=== PATIENT | female | born 1945 | race Caucasian/White ===

== ENCOUNTER 2017-05-04 09:47 | Emergency (ER) | payer MEDICARE ==
--- NOTE | 2017-05-04 11:21 | EDM.PDOC ---
[id number] [id number] FLU??? Time Seen by Provider: 05/04/17 10:45 Source of Information: Reports: Patient History Limitations: Reports: No Limitations - History of Present Illness INITIAL COMMENTS - FREE TEXT/NARRATIVE: 71-year-old female concerned she might have the "flu". Last night she just felt a little off, but slept well. This morning she woke up and had emesis 2 and a small amount of diarrhea. She feels weak this morning so that should be checked. However now she feels fairly normal. She has no pain, no fever, no shortness of breath or chest pain. No rashes or joint pain. Onset: Unknown/Unsure (Symptoms started sometime overnight) Severity: Mild Improves with: Reports: None Worsens with: Reports: None Associated Symptoms: Reports: No Other Symptoms - Related Data Allergies Allergy/AdvReac Type Severity Reaction Status Date / Time cefprozil Allergy Cannot Verified 10/02/15 08:24 Remember Penicillins AdvReac Stomach Verified 10/02/15 14:04 Upset pravastatin AdvReac Headache Verified 10/02/15 14:04 simvastatin AdvReac Headache Verified 10/02/15 14:04 [id number] Reductase AdvReac Diarrhea Verified 10/02/15 14:04 Inhibitor Home Meds: Home Meds Aspirin [Chavez Chewable Aspirin] 81 mg PO DAILY 09/01/15 [History] Calcium Carbonate/Vitamin D3 [Calcium 600 + Vit D 400] 1 tab PO BID 09/01/15 [ History] Insulin Aspart [Novolog] 2 - 3 units SQ TID 09/01/15 [History] Insulin Glarg,Human.Rec.Analog [Lantus Solostar] 16 units SQ BEDTIME 09/01/15 [ History] Magnesium Chloride [Mag-64] 64 mg PO DAILY 09/01/15 [History] Metoprolol Tartrate [Lopressor] 50 mg PO BID 09/01/15 [History] metFORMIN [Glucophage] 850 mg PO TID 09/01/15 [History] Loratadine [Claritin] 10 mg PO DAILY 09/27/15 [History] Acetaminophen [Tylenol] 650 mg PO Q6H PRN #100 tablet 10/03/15 [Rx] Past Medical History HEENT History: Reports: Allergic Rhinitis, Cataract, Impaired Vision, Sinusitis Cardiovascular History: Reports: Arrhythmia, High Cholesterol, Hypertension Gastrointestinal History: Reports: Colon Polyp PIE CHEF History: Reports: , Spontaneous Endocrine/Metabolic History: Reports: Diabetes, Type II, IDDM Oncologic (Cancer) History: Reports: Breast - Infectious Disease History Infectious Disease History: Reports: Chicken Pox, Measles, Mumps - Past Surgical History Head Surgeries/Procedures: Reports: None Female Surgical History: Reports: Breast Biopsy Oncologic Surgical History: Reports: Biopsy of Breast Dermatological Surgical History: Reports: None Social & Family History - Family History Family Medical History: Noncontributory - Tobacco Use Smoking Status *Q: Never Smoker Second Hand Smoke Exposure: No - Caffeine Use Caffeine Use: Reports: Coffee, Soda - Alcohol Use Days Per Week of Alcohol Use: 7 Number of Drinks Per Day: 1 Total Drinks Per Week: 7 Date of Last Drink: 05/03/17 - Recreational Drug Use Recreational Drug Use: No ED ROS GENERAL - Review of Systems Review Of Systems: See Below Constitutional: Reports: Malaise. Denies: Fever, Chills HEENT: Reports: No Symptoms Respiratory: Denies: Shortness of Breath, Cough Cardiovascular: Denies: Chest Pain GI/Abdominal: Reports: Diarrhea, Nausea, Vomiting. Denies: Abdominal Pain : Reports: No Symptoms Skin: Reports: No Symptoms Neurological: Reports: Weakness (Generalized). Denies: Headache Psychiatric: Reports: No Symptoms ED EXAM, GENERAL - Physical Exam Exam: See Below Exam Limited By: No Limitations General Appearance: Alert, No Apparent Distress Eye Exam: Bilateral Eye: Normal Inspection Respiratory/Chest: No Respiratory Distress, Lungs Clear Cardiovascular: Regular Rate, Rhythm GI/Abdominal: Normal Bowel Sounds, Soft, Non-Tender Neurological: Alert, Oriented Psychiatric: Normal Affect, Normal Mood Skin Exam: Warm, Dry Course - Vital Signs Last Recorded V/S: Last Vital Signs Temp 96.0 F 05/04/17 10:56 Pulse 77 05/04/17 11:51 Resp 20 05/04/17 10:56 BP 193/117 H 05/04/17 11:51 Pulse Ox 98 05/04/17 10:56 Orthostatic Blood Pressure [ 191/127 Standing] Orthostatic Blood Pressure [ 185/113 Sitting] Orthostatic Blood Pressure [ 186/102 Supine] - Orders/Labs/Meds Orders: Active Orders 24 hr Category Date Time Status Orthostatic Vital Signs [RC] ASDIRECTED Care 05/04/17 12:29 Active - Re-Assessments/Exams Free Text/Narrative Re-Assessment/Exam: 05/04/17 11:42 Orthostatic blood pressures were stable however she was consistently hypertensive. She does admit that whenever she goes into the hospital her blood pressure goes "way up". She did get her blood pressure medications this morning. She did not redevelop any symptoms while she was here, I encouraged her to check her blood pressure at least several times weekly and recheck with her primary provider in 2-3 days to discuss whether more treatment is needed for blood pressure control. She will return sooner if her gastroenteritis symptoms return or she feels worse. Departure - Departure Time of Disposition: 11:52 Disposition: Home, Self-Care 01 Condition: Good Clinical Impression: Gastroenteritis Hypertension Qualifiers: Hypertension type: essential hypertension Qualified Code(s): I10 - Essential ( primary) hypertension - Discharge Information Instructions: Viral Gastroenteritis, Adult, [id number], Hypertension Referrals: Vikki Tse PA [Primary Care Provider] - Forms: ED Department Discharge Care Plan Goals: Advance diet as tolerated, continue your regular medications and consistent blood pressure checks for the next several days with a recheck in 48-72 hours would be advised. Return to ER if you feel you are worsening or have other concerns. - My Orders Last 24 Hours: My Active Orders 05/04/17 12:29 Orthostatic Vital Signs [RC] ASDIRECTED - Assessment/Plan Last 24 Hours: My Active Orders 05/04/17 12:29 Orthostatic Vital Signs [RC] ASDIRECTED
[2017-05-04 11:51] VITALS: BP 193/117
== END 2017-05-04 11:52 | disposition home or self-care (01) ==
LOC: JP.ED 09:47
DX: K52.9 Noninfective gastroenteritis and colitis, unspecified (principal); I10 Essential (primary) hypertension; E78.00 Pure hypercholesterolemia, unspecified; E11.9 Type 2 diabetes mellitus without complications; Z85.3 Personal history of malignant neoplasm of breast; Z79.4 Long term (current) use of insulin; Z79.82 Long term (current) use of aspirin; Z79.899 Other long term (current) drug therapy; Z88.0 Allergy status to penicillin; Z88.8 Allergy status to other drugs, medicaments and biological substances; Z98.890 Other specified postprocedural states
CPT/HCPCS: 99283

== ENCOUNTER 2018-03-08 19:42 | Emergency (ER) | payer MEDICARE ==
--- NOTE | 2018-03-08 20:03 | EDM.PDOC ---
ED HPI GENERAL MEDICAL PROBLEM - General Chief Complaint: Lower Extremity Injury/Pain Stated Complaint: FELL AND HURT HIP Time Seen by Provider: 03/08/18 19:45 Source of Information: Reports: Patient, EMS History Limitations: Reports: No Limitations - History of Present Illness INITIAL COMMENTS - FREE TEXT/NARRATIVE: 72-year-old female brought in by ambulance with a right hip injury, and left wrist injury after falling in her yard. She tripped over a tomato cage. This happened about 2 hours ago, she managed to crawl into the house and call for help. She has no abdominal pain, shortness of breath, she did not sustain a head injury or have any spine complaints. There is some external rotation of the right leg and slight shortening, and she arrives with her left wrist in a splint per EMS. Vitals are stable. 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(s) Right Hip Pain Score (Numeric/FACES): 5 - Related Data Allergies Allergy/AdvReac Type Severity Reaction Status Date / Time cefprozil Allergy Cannot Verified 03/08/18 19:58 Remember Penicillins AdvReac Stomach Verified 03/08/18 19:58 Upset pravastatin AdvReac Headache Verified 03/08/18 19:58 simvastatin AdvReac Headache Verified 03/08/18 19:58 [id number]-[id number] Reductase AdvReac Diarrhea Verified 03/08/18 19:58 Inhibitor Home Meds: Home Meds Aspirin [Chavez Chewable Aspirin] 81 mg PO DAILY 09/01/15 [History] Calcium Carbonate/Vitamin D3 [Calcium 600 + Vit D 400] 1 tab PO BID 09/01/15 [ History] Insulin Aspart [Novolog] 2 - 3 units SQ TID 09/01/15 [History] Magnesium Chloride [Mag-64] 64 mg PO DAILY 09/01/15 [History] Metoprolol Tartrate [Lopressor] 50 mg PO BID 09/01/15 [History] metFORMIN [Glucophage] 850 mg PO TID 09/01/15 [History] Loratadine [Claritin] 10 mg PO DAILY 09/27/15 [History] Acetaminophen [Tylenol] 650 mg PO Q6H PRN #100 tablet 10/03/15 [Rx] Insulin Degludec [Tresiba Flextouch U-100] 12 units SQ DAILY 03/08/18 [History] Past Medical History HEENT History: Reports: Allergic Rhinitis, Cataract, Impaired Vision, Sinusitis Cardiovascular History: Reports: Arrhythmia, High Cholesterol, Hypertension Gastrointestinal History: Reports: Colon Polyp 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: , 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 Endocrine/Metabolic History: Reports: Diabetes, Type II, IDDM Oncologic (Cancer) History: Reports: Breast - Infectious Disease History Infectious Disease History: Reports: Chicken Pox, Measles, Mumps - Past Surgical History Head Surgeries/Procedures: Reports: None Female Surgical History: Reports: Breast Biopsy Oncologic Surgical History: Reports: Biopsy of Breast Dermatological Surgical History: Reports: None Social & Family History - Family History Family Medical History: Noncontributory - Caffeine Use Caffeine Use: Reports: Coffee, Soda Review of Systems - Review of Systems Review Of Systems: See Below Constitutional: Denies: Fever Respiratory: Reports: No Symptoms Cardiovascular: Reports: No Symptoms GI/Abdominal: Reports: No Symptoms Genitourinary: Reports: No Symptoms Skin: Reports: No Symptoms Neurological: Denies: Headache Psychiatric: Reports: No Symptoms ED EXAM, GENERAL - Physical Exam Exam: See Below Exam Limited By: No Limitations General Appearance: Alert, Mild Distress (Patient is uncomfortable, received some pain control in route) Head: Atraumatic Neck: Supple Respiratory/Chest: No Respiratory Distress, Lungs Clear Cardiovascular: Regular Rate, Rhythm. No: Extra Beats GI/Abdominal: Soft, Non-Tender Extremities: Other (Tito palpation tenderness around the right hip with increased pain with any passive range of motion. Distal CS is intact. She has a splint on the left wrist, she has normal sensation to the fingers and movement but tenderness around the the wrist especially radial side) Neurological: Alert, Oriented Course - Vital Signs Last Recorded V/S: Last Vital Signs Temp 97.3 F 03/08/18 21:12 Pulse 91 03/08/18 21:12 Resp 18 03/08/18 21:12 BP 166/90 H 03/08/18 21:12 Pulse Ox 98 03/08/18 21:12 - Orders/Labs/Meds Orders: Active Orders 24 hr Category Date Time Status Insert Qiu Catheter [Insert Urinary Catheter] [OM.PC] Care 03/08/18 20:45 Ordered Q24H Urinary Catheter Assessment [RC] ASDIRECTED Care 03/08/18 20:39 Active Hip Min 2V or 3V w Pelvis Rt [CR] Stat Exams 03/08/18 19:50 Taken Wrist Comp Min 3V Lt [CR] Stat Exams 03/08/18 19:50 Taken Meds: Medications Discontinued Medications Generic Name Dose Route Start Last Admin Trade Name Prosperq PRN Reason Stop Dose Admin Fentanyl 50 mcg 03/08/18 20:38 03/08/18 20:44 Sublimaze IVPUSH 03/08/18 20:39 50 mcg ONETIME ONE Administration - Re-Assessments/Exams Free Text/Narrative Re-Assessment/Exam: 03/08/18 20:35 An x-ray of the right hip and pelvis was obtained and revealed a comminuted subcapsular femoral neck fracture. She also has an impacted distal radius fracture of the left wrist. Orthopedics is not available in [place] at this time, [place] was consulted. 03/08/18 20:39 Patient was given 50 g of additional fentanyl IV for pain control, and a Qiu was placed. 03/09/18 02:10 Patient was accepted for transfer by orthopedics in [place]. Departure - Departure Time of Disposition: 22:52 Disposition: DC/Tfer to Other 70 Condition: Fair Clinical Impression: Fracture of neck of femur, hip Distal radius fracture, left Qualifiers: Encounter type: initial encounter Fracture type: closed Fracture morphology: other fracture Qualified Code(s): S52.592A - Other fractures of lower end of left radius, initial encounter for closed fracture - Discharge Information Referrals: Vikki Tse PA [Primary Care Provider] - Forms: ED Department Discharge Care Plan Goals: Patient is transferred [place] for orthopedic evaluation and treatment for a right hip fracture and left wrist fracture. - My Orders Last 24 Hours: My Active Orders 03/08/18 19:50 Hip Min 2V or 3V w Pelvis Rt [CR] Stat Wrist Comp Min 3V Lt [CR] Stat 03/08/18 20:39 Urinary Catheter Assessment [RC] ASDIRECTED 03/08/18 20:45 Insert Qiu Catheter [Insert Urinary Catheter] [OM.PC] Q24H - Assessment/Plan Last 24 Hours: My Active Orders 03/08/18 19:50 Hip Min 2V or 3V w Pelvis Rt [CR] Stat Wrist Comp Min 3V Lt [CR] Stat 03/08/18 20:39 Urinary Catheter Assessment [RC] ASDIRECTED 03/08/18 20:45 Insert Qiu Catheter [Insert Urinary Catheter] [OM.PC] Q24H
[2018-03-08] MEDS ORDERED: fentaNYL 100 MCG/2 ML SDV IVPUSH ONE (20:38)
[2018-03-08 21:13] VITALS: BP 166/90
--- NOTE | 2018-03-09 09:30 | CR ---
Hip Min 2V or 3V w Pelvis Rt CLINICAL HISTORY: Fall, hip pain FINDINGS: There is a displaced fracture of the right femoral neck. There are mild osteoarthritic mcknight ges in the right hip. Pelvis appears intact Impression: Displaced to the right femoral neck fracture
--- NOTE | 2018-03-09 09:31 | CR ---
Wrist Comp Min 3V Lt CLINICAL HISTORY: Pain, fall FINDINGS: There is a fracture of the distal radial metaphysis with the lateral displacement and dorsa l angulation. Impression: Displaced distal left radial fracture
== END 2018-03-08 22:52 | disposition other institution (70) ==
LOC: JP.ED 19:42
DX: S72.012A Unspecified intracapsular fracture of left femur, initial encounter for closed fracture (principal); S52.592A Other fractures of lower end of left radius, initial encounter for closed fracture; E78.00 Pure hypercholesterolemia, unspecified; I10 Essential (primary) hypertension; E11.9 Type 2 diabetes mellitus without complications; Z79.82 Long term (current) use of aspirin; Z79.899 Other long term (current) drug therapy; Z88.5 Allergy status to narcotic agent; W22.8XXA Striking against or struck by other objects, initial encounter
CPT/HCPCS: 51702; 73110; 73502; 96374; 99285; J3010; 99284

== ENCOUNTER 2024-09-09 18:57 | Emergency (ER) | payer MEDICARE ==
[2024-09-09 19:28] LABS: BASOPHILS ABSOLUTE AUTO 0.05 K/uL (0.00-0.10); BASOPHILS PERCENT AUTO 0.9 % (0.1-1.3); EOSINOPHILS PERCENT AUTO 0.2 % (0.0-5.4); HEMATOCRIT 43.3 % (34.3-46.0); HEMOGLOBIN 14.8 g/dL (11.2-15.5); IMMATURE GRAN PERCENT AUTO 0.4 % (0.0-0.7); LYMPHOCYTES ABSOLUTE AUTO 0.82 K/uL (0.8-3.3); LYMPHOCYTES PERCENT AUTO 14.5 % (11.4-47.7); MEAN CORPUSCULAR HEMOGLOBIN 29.7 pg (31.6-35.5); MEAN CORPUSCULAR HGB CONC 34.2 g/dL (31.6-35.5); MEAN CORPUSCULAR VOLUME 86.8 fL (81.4-99.0); MONOCYTES ABSOLUTE AUTO 0.13 K/uL (0.20-0.90); MONOCYTES PERCENT AUTO 2.3 % (3.3-12.6); NEUTROPHILS ABSOLUTE AUTO 4.64 K/uL (1.0-7.6); NEUTROPHILS PERCENT AUTO 81.7 % (40.0-78.1); PLATELET COUNT,PLT 282 K/uL (130-375); RED BLOOD CELL COUNT 4.99 M/uL (3.77-5.24); WHITE BLOOD CELL COUNT,WBC 5.7 K/uL (3.2-11.0)
[2024-09-09 19:31] LABS: EOSINOPHILS ABSOLUTE AUTO 0.01 K/uL (0.00-0.40); IMMATURE GRAN ABSOLUTE AUTO 0.02 K/uL (0.00-0.23)
[2024-09-09 19:37] VITALS: BP 149/96; PULSE 81
[2024-09-09 19:49] LABS: A/G RATIO 0.8 (1.2-2.2); ALANINE AMINOTRANSFERASE,ALT 27 U/L (12-78); ALBUMIN 3.4 g/dL (3.4-5.0); ALKALINE PHOSPHATASE 125 U/L (46-116); ANION GAP 11.7 mmol/L (5.0-14.0); ASPARTATE AMNIOTRANSFERASE,AST 32 U/L (15-37); BILIRUBIN TOTAL 0.3 mg/dL (0.2-1.0); BLOOD UREA NITROGEN,BUN 15 mg/dL (7-18); CALCIUM 9.3 mg/dL (8.5-10.1); CARBON DIOXIDE,CO2 25 mmol/L (21-32); CHLORIDE,CL 103 mmol/L (100-108); CREATINE KINASE,CK 97 U/L (26-192); CREATININE 1.2 mg/dL (0.6-1.0); EST CRCL DRUG DOSING (CG) 31.54 mL/min; ESTIMATED GFR 47 mL/min (>60); GLUCOSE RANDOM 196 mg/dL (74-106); POTASSIUM,K 3.9 mmol/L (3.6-5.2); PROTEIN TOTAL,TP 7.6 g/dL (6.4-8.2); SODIUM,NA 140 mmol/L (140-148)
== END 2024-09-09 20:13 | disposition home or self-care (01) ==
LOC: JP.ED 18:57
DX: E11.649 Type 2 diabetes mellitus with hypoglycemia without coma (principal); I10 Essential (primary) hypertension; Z79.82 Long term (current) use of aspirin; Z79.4 Long term (current) use of insulin; Z79.899 Other long term (current) drug therapy; Z88.8 Allergy status to other drugs, medicaments and biological substances; Z88.0 Allergy status to penicillin
CPT/HCPCS: 36415; 80053; 82550; 85025; 99284; 99285